=== PATIENT | male | born 1950 | race Caucasian/White ===

== ENCOUNTER 2022-07-04 13:15 | Outpatient (RCR) | payer MEDICARE, OTHER, SELFPAY | END 2022-07-04 13:57 | disposition home or self-care (01) | PROVIDERS: PCP Family Medicine; Visit Provider Orthopaedic Surgery | DX: S76.911A Strain of unspecified muscles, fascia and tendons at thigh level, right thigh, initial encounter (principal) | CPT/HCPCS: 97140 ==

== ENCOUNTER 2023-07-28 12:09 | Emergency (ER) | payer MEDICARE, OTHER, SELFPAY ==
[2023-07-28 12:25] VITALS: BP 150/89; PULSE 47; RESP 16; TEMP 35.6; O2SAT 98; BMI 31.2
--- NOTE | 2023-07-28 13:56 | CRLHL7_ITS ---
For Patients: As a result of the Century Cures Act, medical imaging exams and procedure reports are released immediately into your electronic medical record. You may view this report before your referring provider. If you have questions, please contact your health care provider. INDICATION: Right lower extremity pain and swelling COMPARISON: None available. FINDINGS: Ultrasound of the venous drainage of the right lower extremity shows no evidence of deep venous thrombosis. There is normal antegrade flow from the posterior tibial and popliteal veins superiorly through the common femoral vein. There is normal augmentation and compressibility of these veins. The left common femoral vein is widely patent. IMPRESSION: No evidence of deep venous thrombosis on ultrasound examination of the right lower extremity. Dictated by George Ceballos MD @ 07/28/2023 3:54:02 PM (Electronically Signed)
--- NOTE | 2023-07-28 14:01 | ED_ITS ---
HPI - General Adult General Chief complaint: Extremity Pain/Injury, Lower Stated complaint: Possible blood clot R leg Time Seen by Provider: 07/28/23 13:40 History of Present Illness HPI narrative: This 73-year-old male comes in with pain in his right lower extremity. He has been seeing physical therapy regarding this pain that is been more localized in his right buttock and upper leg. In the past few days this pain now has radiated down below his knee. He comes here with concern that he might have a blood clot in his leg. He does not have any prior history of blood clots and is not on any anticoagulants. He does not describe any chest pain or shortness of breath. He does not have any swelling or erythema in his right lower extremity. He does not describe any particular injury event recently also. He states that his physical therapist thinks that he has got a nerve impingement or sciatica in his low back. The patient states that he has been taking [id number] medicines but has not had much relief with this and did not sleep well last night. Related Data Home Medications Medication Instructions Recorded Confirmed atorvastatin 40 mg tablet 40 mg PO DAILY 07/28/23 07/28/23 Previous Rx's Medication Instructions Recorded cyclobenzaprine 10 mg tablet 10 mg PO TID #15 tabs 07/28/23 ketorolac 10 mg tablet 10 mg PO Q8H 5 days #15 tabs 07/28/23 methylprednisolone 4 mg tablets in See Rx Instructions PO .COMPLEX 07/28/23 a dose pack (Medrol (Nii)) #21 ea Allergies Allergy/AdvReac Type Severity Reaction Status Date / Time No Known Drug Allergies Allergy Verified 07/28/23 12:30 Review of Systems Status of ROS: Reports: 10 or more systems reviewed and unremarkable except as noted in History and below Narrative: Constitutional: No fevers, no weight gain or loss. Eyes: No discharge. No vision changes. HENT: No congestion, no sore throat, no ear pain. Cardiovascular: No chest pain, no palpitations. Respiratory: No shortness of breath, no wheezes, no cough. Gastrointestinal: No abdominal pain, no vomiting, no diarrhea. Genitourinary: No dysuria, no hematuria. Musculoskeletal: Pain radiating down the right buttock in the posterior lateral aspect of his right leg down a bit below his right knee. Skin: No rashes, no pruritis. Neurological: No dizziness, weakness, sensory change, speech change. Endo/Heme/Allergies: No bruising or bleeding. No polydipsia. Pysch: no suicidality, no anxiety, no insomnia. All other systems reviewed and are negative. Exam Narrative: Exam Narrative: Constitutional: Well-developed, well-nourished, no acute distress. HEENT: Normocephalic, atraumatic. Neck: Normal range of motion. Nontender. Supple. Heart: Regular. No murmurs. Normal rate. Intact distal pulses. Lungs: Clear to auscultation. No chest discomfort. No wheezes, rhonchi, or rales. Abdomen: Normal bowel sounds. Nontender. No rebound tenderness. Genitalia: Deferred. Back: No midline tenderness. Normal range of motion. Straight leg raise is negative bilaterally. Extremities: Normal range of motion. No injury. Skin: Intact. No rash. Warm. No erythema or pallor. Neurologic: No altered sensation. No weakness. Alert and oriented. Psychiatric: No suicidality. No anxiety or depression. No insomnia. Nursing notes and vitals signs are reviewed. Const: Vital Signs, click to edit/add: Vital Signs - 24 hr 07/28/23 12:25 Temperature 96.0 F L Pulse Rate [Right Pulse Oximeter] 47 L Respiratory Rate 16 Blood Pressure [Ri ght Upper Arm] 150/89 H Pulse Oximetry 98 Oxygen Delivery Me thod Room Air Course Vital Signs Vital signs: Initial Vital Signs Temperature 96.0 F L 07/28/23 12:25 Temperature Source Temporal Artery Scan 07/28/23 12:25 Pulse Rate 47 L 07/28/23 12:25 Respiratory Rate 16 07/28/23 12:25 Blood Pressure 150/89 H 07/28/23 12:25 Blood Pressure Mean 109 H 07/28/23 12:25 Blood Pressure Position Sitting 07/28/23 12:25 Pulse Oximetry 98 07/28/23 12:25 Oxygen Delivery Method Room Air 07/28/23 12:25 Vital Signs Temperature 96.0 F L 07/28/23 12:25 Pulse Rate 47 L 07/28/23 12:25 Respiratory Rate 16 07/28/23 12:25 Blood Pressure 150/89 H 07/28/23 12:25 Pulse Oximetry 98 07/28/23 12:25 Oxygen Delivery Method Room Air 07/28/23 12:25 Temperature 96.0 F L 07/28/23 12:25 Pulse Rate 47 L 07/28/23 12:25 Respiratory Rate 16 07/28/23 12:25 Blood Pressure 150/89 H 07/28/23 12:25 Pulse Oximetry 98 07/28/23 12:25 Oxygen Delivery Method Room Air 07/28/23 12:25 Medical Decision Making MDM Narrative Medical decision making narrative: This patient has been seeing physical therapy for pain in his right buttock and right upper leg. He is sent here to rule out a blood clot as the pain now his extended down into his leg. He does not report any injury event or strenuous activity. He has not had any blood clot in the past. An ultrasound is acquired here which shows no sign of deep venous thrombosis. Most likely this patient's symptoms are nerve mediated. He did have a therapeutic injection in his low back about 15 years ago to treat some similar symptoms. Today the patient received prescriptions for Medrol Dosepak, Flexeril, and Toradol. He was also given information to follow-up in our spine clinic here for further evaluation and treatment if needed. Discharge Plan Discharge Clinical Impression: Acute lumbar radiculopathy Patient Disposition: Home, Self-Care Condition: Unchanged Additional Instructions: Take medications as prescribed and needed. Activity as tolerated. Follow up with Spine Clinic and make appointment by calling [phone]. Return if worsening. Prescriptions: New cyclobenzaprine 10 mg tablet 10 mg PO TID Qty: 15 0RF ketorolac 10 mg tablet 10 mg PO Q8H 5 Days Qty: 15 0RF methylprednisolone [Medrol (Nii)] 4 mg tablets,dose pack See Rx Instructions .ROUTE .COMPLEX Qty: 21 0RF Rx Instructions: orally per package directions No Action atorvastatin 40 mg tablet 40 mg PO DAILY Follow Up/Referrals: Vincent Jauregui MD [Primary Care Provider] - Stand Alone Forms: [employer] Info Instructions
[2023-07-28 14:03] VITALS: BP 177/80; PULSE 49
--- NOTE | 2023-07-28 14:10 | PC.NURSE ---
Pt states he has been seeing physician for the last 8 weeks or so for right leg discomfort, hamstring tendonitis. In the last three days pain has moved down to lower leg/calf. Pt states is has been keeping him from sleeping, pain can be at a 10/10 with movement/weight bearing and currently a 4/10 while at rest. Took Alleve in middle of night with some relief and took tylenol this morning. Pt is a runner, states he hasn't been able to run since June 22.
--- NOTE | 2023-07-28 14:52 | ED.GENADULT ---
HPI - General Adult General Chief complaint: Extremity Pain/Injury, Lower Stated complaint: Possible blood clot R leg Time Seen by Provider: 07/28/23 13:40 Related Data Home Medications Medication Instructions Recorded Confirmed atorvastatin 40 mg tablet 40 mg PO DAILY 07/28/23 10/01/23 Previous Rx's Medication Instructions Recorded cyclobenzaprine 10 mg tablet 10 mg PO TID #15 tabs 07/28/23 cyclobenzaprine 5 mg tablet 5 mg PO TID PRN muscle spasm #30 08/13/23 tabs gabapentin 300 mg capsule 300 mg PO TID #90 caps 10/01/23 Allergies Allergy/AdvReac Type Severity Reaction Status Date / Time No Known Drug Allergies Allergy Unverified 10/01/23 08:23 [facility] Surgical History (Updated 08/11/23 @ 11:44 by Narendra Hinkle) History of bilateral cataract extraction ?Z98.41 - Cataract extraction status, right eye (ICD-10) ?Z98.42 - Cataract extraction status, left eye (ICD-10) Exam Const: Vital Signs, click to edit/add: Vital Signs - 24 hr 07/28/23 12:25 Temperature 96.0 F L Pulse Rate [Right Pulse Oximeter] 47 L Respiratory Rate 16 Blood Pressure [Ri ght Upper Arm] 150/89 H Pulse Oximetry 98 Oxygen Delivery Me thod Room Air Course Vital Signs Vital signs: Initial Vital Signs Temperature 96.0 F L 07/28/23 12:25 Temperature Source Temporal Artery Scan 07/28/23 12:25 Pulse Rate 47 L 07/28/23 12:25 Respiratory Rate 16 07/28/23 12:25 Blood Pressure 150/89 H 07/28/23 12:25 Blood Pressure Mean 109 H 07/28/23 12:25 Blood Pressure Position Sitting 07/28/23 12:25 Pulse Oximetry 98 07/28/23 12:25 Oxygen Delivery Method Room Air 07/28/23 12:25 Vital Signs Temperature 96.0 F L 07/28/23 12:25 Pulse Rate 47 L 07/28/23 12:25 Respiratory Rate 16 07/28/23 12:25 Blood Pressure 150/89 H 07/28/23 12:25 Pulse Oximetry 98 07/28/23 12:25 Oxygen Delivery Method Room Air 07/28/23 12:25 Temperature 96.0 F L 07/28/23 12:25 Pulse Rate 50 L 07/28/23 15:16 Respiratory Rate 16 07/28/23 15:16 Blood Pressure 138/95 H 07/28/23 15:16 Pulse Oximetry 97 07/28/23 15:16 Oxygen Delivery Method Room Air 07/28/23 15:16 Discharge Plan Discharge Clinical Impression: Acute lumbar radiculopathy Patient Disposition: Home, Self-Care Condition: Unchanged Additional Instructions: Take medications as prescribed and needed. Activity as tolerated. Follow up with Spine Clinic and make appointment by calling [phone]. Return if worsening. Prescriptions: New cyclobenzaprine 10 mg tablet 10 mg PO TID Qty: 15 0RF No Action cyclobenzaprine 5 mg tablet 5 mg PO TID PRN (Reason: muscle spasm) Qty: 30 1RF gabapentin 300 mg capsule 300 mg PO TID Qty: 90 3RF Rx Instructions: Start at 1 capsule at at bedtime, then increase after 3 days to 1 capsule morning and night, and then after 3 more days 1 capsule 3 times a day. atorvastatin 40 mg tablet 40 mg PO DAILY Follow Up/Referrals: Vincent Jauregui MD [Primary Care Provider] - Stand Alone Forms: [employer] Info Instructions
[2023-07-28 15:16] VITALS: BP 138/95; PULSE 50; RESP 16; O2SAT 97
== END 2023-07-28 15:15 | disposition home or self-care (01) ==
PROVIDERS: Emergency Provider Emergency Medicine Emergency Medical Services; PCP Family Medicine
DX: M54.16 Radiculopathy, lumbar region (principal)
CPT/HCPCS: 93971; 99283; 99284